=== PATIENT | female | born 1975 | race Caucasian/White ===

== ENCOUNTER 2023-09-16 09:54 | Outpatient (CLI) | payer MEDICAID, SELFPAY | END 2023-09-16 09:55 | disposition home or self-care (01) | PROVIDERS: PCP Family Medicine; Visit Provider Family Medicine | DX: Z00.00 Encounter for general adult medical examination without abnormal findings (principal); R53.83 Other fatigue | CPT/HCPCS: 80048; 84439 ==

== ENCOUNTER 2023-12-02 13:01 | Outpatient (CLI) | payer MEDICAID, SELFPAY ==
--- NOTE | 2023-12-02 13:20 | MM_ITS ---
Patient: ENA DENNIS Facility:?[facility] Patient ID:?[id number] Site Patient ID:?[id number] Site :?[id number] Study:?XRay-Breast Bilateral 3D W/CAD-12/02/2023 1:37:01 PM Ordering Physician:Ander Final Report: BILATERAL SCREENING MAMMOGRAM WITH COMPUTER-AIDED DETECTION AND TOMOSYNTHESIS TECHNIQUE: CC and MLO views were obtained. These mammographic images have been obtained using full-field digital technique. These mammographic images were interpreted with the benefit of computer-aided detection. Breast tomosynthesis was used in this interpretation. COMPARISON FILM: 11/14/20, 11/09/13. FINDINGS: The breasts are heterogeneously dense, which may obscure small masses. IMPRESSION: There is no radiographic evidence for malignancy. ASSESSMENT: BI-RADS Category 1: Negative RECOMMENDATION: Routine screening mammogram in 1 year. A lay language report of this examination will be provided to the patient. ANNITA PLUNKETT M.D. Diagnostic Radiologist [email or web address] D& Transcribed: 1:[address]/Dictated by: Annita Plunkett MD @ 12/03/2023 9:28:00 AM Signed by:?Annita Plunkett MD @12/03/2023 1:27:28 PM (Electronic Signature)
== END 2023-12-02 13:02 | disposition home or self-care (01) ==
LOC: MAMMO 13:01
PROVIDERS: PCP Family Medicine; Visit Provider Family Medicine
DX: Z12.31 Encounter for screening mammogram for malignant neoplasm of breast (principal); R92.2 Inconclusive mammogram
CPT/HCPCS: 77063; 77067

== ENCOUNTER 2024-09-29 11:16 | Outpatient (CLI) | payer MEDICAID, SELFPAY | END 2024-09-29 11:17 | disposition home or self-care (01) | LOC: LKVREF 11:19 | PROVIDERS: PCP Family Medicine; Visit Provider Family Medicine | DX: Z13.1 Encounter for screening for diabetes mellitus (principal); Z13.0 Encounter for screening for diseases of the blood and blood-forming organs and certain disorders involving the immune mechanism | CPT/HCPCS: 80048 ==

== ENCOUNTER 2025-03-27 13:59 | Emergency (ER) | payer MEDICAID, SELFPAY ==
--- OUTSIDE RECORDS SUMMARY | 2025-03-27 14:02 | XMS_ITS | Patient Health Record ---
Author Organization [facility], [facility] Address [address] [place] [id number] Care Team Providers Care Subway Conductor Name Role Phone Jeny BO Unavailable [phone] Reason For Referral No Information Medications Medication SIG (Take, Route, Frequency, Duration) Notes Start Date End Date Status Ambien CR 12.5 MG 1 tablet at bedtime as needed Orally As directed 10/15/2014 Active Magnesium Active Levothyroxine Sodium 25 MCG 1 and 1/2 ta b Orally once daily in the morning one hour before breakfast 10/15/2014 Active Vitamin B 12 Active Vitamin D Active Doxycycline Hyclate 100 MG 1 tablet Oral ly Twice a day; Duration: 60 days 11/05/2014 Active Adapten-All 1 one oral twice daily 12/17/2014 Active CeleXA 40 MG 1 tablet Orally Once a day Active Oil of Oregano 1500 MG as directed Orally daily Active DHEA 5mg one daily oral 01/14/2015 Acti ve traZODone HCl 100 MG Orally Active Progesterone 100 MG 1 capsule on days 14 -24 of your cycle by mouth Once a day 01/14/2015 Active Xanax 1 MG 1 tablet Orally As directed Active Problems Problem Type SNOMED Code ICD Code Onset Dates Problem Status W/U Status Risk Notes Problem Headache (51797584) Headache (784.0) Active confirmed Problem Menopause (575725378) MENOPAUSE (627.2) Active confirmed Problem Fatigue (73345403) FATIGUE (780.79) Active confirmed Problem Insomnia (150657326) INSOMNIA (780.52) Active confirmed Problem Reduced libido (6374445) LIBIDO, DECREASED (799.81) Active confirmed Problem Menstrual disorder (501532309) MENSTRUAL DISORDER (626.9) Active confirmed Problem Weight gain (432330832) WEIGHT GAIN (783.1) Active confirmed Problem Vitamin D deficiency (15399042) Vitamin D deficiency (268.9) Active confirmed Problem Hypothyroid (65529556) Hypothyroid (244.9) Active confirmed Problem Depression (297277040) Depression (311) Active confirmed Problem Abdominal pain (00465452) Abdominal pain (789.00) Active confirmed Problem Alopecia (01181386) Hair loss (704.00) Active confirmed Problem Anxiety state (402966445) Acute anxiety (300.00) Active confirmed Problem Decreased estrogen level (862442114) Estrogen deficiency (256.39) Active confirmed Problem Lyme enzyme-linked immunosorbent assay positive (822747829) Positive Lyme disease serology (795.79) Active confirmed Problem Serum ferritin level low (164965476205395) Low serum ferritin level (790.6) Active confirmed Problem Infectious mononucleosis (806067093) Chronic Danielle Manzanares virus (EBV) infection (075) Active confirmed Plan Of Treatment No Information Insurance Providers Payer Name Payer Address Payer Phone Subscriber Number Group Number Insured Name Patient Relationship to Insured Coverage Start Date Coverage End Date [employer] of [facility] [address] [address] [place], [place] [id number] Izzy Macdonald Self - patient is the insured 5 Medical (General) History Medical History History ICD Code Mirgraines Head injury Depression bladder infections Surgical History Surgery Date(Month/Year) Caesarean section 02/2011 Caesarean section 06/2012
[2025-03-27 14:07] VITALS: BP 143/91; PULSE 80; RESP 18; TEMP 36.2; O2SAT 97; BMI 26.1
--- NOTE | 2025-03-27 14:15 | ED.GENADULT ---
HPI - General Adult General Date Seen: 03/27/25 Chief complaint: Unspecified Complaint, Adult Stated complaint: blacked out Time Seen by Provider: 03/27/25 14:15 History of Present Illness HPI narrative: 49 yo F with past medical history elevated BMI, fibromyalgia, depression/anxiety, and a family history of coronary disease presenting to the ER today for evaluation after she had an episode of altered mental status.. Per PCP record from September she also has a distant history of Lyme disease. She does note that she has chronic trouble with fibromyalgia and chronic trouble with brain fog and aches from her chronic Lyme disease. She works as a [employer] and has been working the same salon for quite a few years. She says she has been healthy and well for the past few days. She gotten up and gone to work at about 920 this morning. Apparently at around 11 or 11 30 she had an episode. 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 She apparently lost focus and had been massaging the client's face instead of washing her hair for about 60-90 seconds. Apparently her client through this to her attention. She was apparently acting oddly. 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 The patient denied taking alcohol or gummies. She apparently also had slurred speech or puffiness of her face. Her Not exactly clear how, but her boyfriend was notified and he came to pick her up from the salon. He brought her here to be evaluated. Here in the ER, the patient her boyfriend requesting that we do a workup. They imply that they want us to do workup to prove to her boss that she is not using drugs or alcohol. She denies any other symptoms. No headache. No blurry vision. No nausea vomiting. No chest pain. No palpitations. There was no visualized seizure activity. She has no history of seizures are absent seizures. For she says she was not drinking alcohol. No THC gummies lately but she does use them some time to help manage her chronic Lyme disease. After her labs came back showing positive THC, positive benzos, and positive serum alcohol level, we obtained more history. Patient does report that she uses Xanax for her anxiety. She says she does occasionally use THC gummies. None this morning or last night. She does not have an explanation for why her alcohol level was positive this afternoon. When asked her if she was drinking this morning, she redirect the conversation. She does vaguely admit to drinking some alcoholic beverages last night that apparently were 10% alcohol. She had her boyfriend say that they stop drinking ?early? last night when went to bed. Her boyfriend got up this morning and went to an appointment before 9:00 a.m.. The patient got up at 9 left for work at 9:20 a.m. when I discussed that a blood alcohol level of 0.06 would not be consistent with alcohol consumption last night, and I inquire about her drinking this morning, she does not directly deny it, but instead changes the direction of the conversation. When I ask her if she would like to talk about alcohol treatment or if she think she has a problem with alcohol use, she says she does not think she has a problem. Related Data Previous Rx's ?Medication ?Instructions ?Recorded citalopram 40 mg tablet 40 mg PO QDAY #90 tabs 09/29/24 trazodone 150 mg tablet 150 mg PO .HS #90 tabs 09/29/24 sulfamethoxazole 800 1 tab PO BID #14 tabs 12/29/24 mg-trimethoprim 160 mg tablet (Bactrim DS) alprazolam 1 mg tablet 0.5 - 1 mg (0.5 - 1 x 1 mg) PO TID 02/12/25 PRN anxiety #30 tabs phentermine 37.5 mg capsule 37.5 mg PO QDAY #30 caps 02/15/25 cephalexin 500 mg capsule 500 mg PO BID #10 caps 03/27/25 Allergies Allergy/AdvReac Type Severity Reaction Status Date / Time No Known Allergies Allergy Unknown Unknown Verified 09/29/24 10: [facility] Medical History Fatigue ?R53.83 - Other fatigue (ICD-10) Hx of migraine during ?Z86.69 - Personal history of other diseases of the nervous system and sense organs (ICD-10) ?Z87.59 - Personal history of other complications of , childbirth and the puerperium (ICD-10) Surgical History Status post repair of ventral hernia ?Z98.890 - Other specified postprocedural states (ICD-10) ?Z87.19 - Personal history of other diseases of the digestive system (ICD-10) Status post delivery ?Z98.891 - History of uterine scar from previous surgery (ICD-10) History of tubal ligation ?Z98.51 - Tubal ligation status (ICD-10) History of nasal septoplasty ?Z98.890 - Other specified postprocedural states (ICD-10) Family History (Updated 09/30/24 @ 08:52 by Ju Rodriguez ~ MELODY) Father High blood pressure High cholesterol Heart disease Other ASCVD (arteriosclerotic cardiovascular disease) Social History Narrative: Marijuana use- Medicinal Alcohol ingestion, 1-4 drinks/week Non-smoker Smoking Status: Never smoker service: No Exam Narrative: Exam Narrative: Constitutional: Appears well-developed and well-nourished. Alert. Conversant. Non toxic. HENT: Head: Atraumatic. Nose: Nose normal. Mouth/Throat: Oral mucosa is clear and moist. no trismus. Pharynx normal. Tonsils symmetric. No tonsillar enlargement, erythema, or exudate. Eyes: Conjunctivae normal. EOM normal. Pupils equal, round, and reactive to light. No scleral icterus. Neck: Normal range of motion. Neck supple. No tracheal deviation present. She does have a dermal piercing on the back of her neck. Skin looks good. No sign of infection. Cardiovascular: Normal rate, regular rhythm. No gallop. No friction rub. No murmur heard. Symmetric radial artery pulses Pulmonary/Chest: Effort normal. No stridor. No respiratory distress. No wheezes. No rales. No rhonchi . No tenderness. Abdominal: Soft. Bowel sounds normal. No distension. No mass. No tenderness. No rebound. No guarding. Musculoskeletal: RUE: Normal range of motion. No tenderness. No deformity LUE: Normal range of motion. No tenderness. No deformity RLE: Normal range of motion. No edema. No tenderness. No deformity LLE: Normal range of motion. No edema. No tenderness. No deformity Lymph: No cervical adenopathy. Neurological: Mental status normal. Attention normal. Alert and oriented x3. GCS 15. Memory normal. Speech fluent. Cognition normal. Cranial Nerves intact II-XII except I did not formally test gag or visual acuity. EOMI. Palate elevates symmetrically and tongue protrudes in the midline. Strength: 5/5 trapezius on the right and left 5/5 deltoid on the right and left 5/5 biceps on the right and left 5/5 triceps on the right and left 5/5 electroplating worker on the right and left 5/5 thumb opposition on the right and left 5/5 finger abduction on the right and left 5/5 hip flexors (L3) on the right and left 5/5 quadriceps (L4) on the right and left 5/5 tibialis anterior on the right and left 5/5 EHL (L5) on the right and left 5/5 gastrocnemius (S1) on the right and left 5/5 hamstring on the right and left Sensation intact to light touch in both upper extremities (C4-T1) Sensation intact to light touch in Both lower extremities (L4-S1). Finger to nose and coordination normal. Gait normal. Skin: Skin is warm and dry. No rash noted. No pallor. Normal capillary refill. Psychiatric: Patient is polite and cooperative. She is pleasant. She is not having any slurred speech or confusion or altered mental status. She seems clinically sober here in the ER. No slurred speech. No facial droop or puffiness. I have concerned that the patient may have alcohol use disorder. She is very vague about her alcohol use. Although we discussed several times, she never explicitly denies alcohol consumption this morning. She is a little bit vague about what she was drinking last night. It sounds like it was an alcoholic beverage that was 10% alcohol by volume. Unlikely that she would been intoxicated to such a level last night that she was still have an alcohol level of 0.06 this afternoon. Patient does not think she is having a problem with alcohol. She does not want to discuss alcohol treatment. She does have anxiety which is chronically managed with Xanax. She urine drug screen is positive. She also endorses a lot of stress and anxiety at home trouble with chronic Lyme disease. Const: Vital Signs, click to edit/add: Vital Signs - 24 hr 03/27/25 14:07 Temperature 97.2 F L Pulse Rate [Pulse Oximeter] 80 Respiratory Rate 18 Blood Pressure [Ri ght Upper Arm] 143/91 H Pulse Oximetry 97 Oxygen Delivery Me thod Room Air Course Vital Signs Vital signs: Initial Vital Signs Temperature 97.2 F L 03/27/25 14:07 Temperature Source Temporal Artery Scan 03/27/25 14:07 Pulse Rate 80 03/27/25 14:07 Respiratory Rate 18 03/27/25 14:07 Blood Pressure 143/91 H 03/27/25 14:07 Blood Pressure Mean 108 H 03/27/25 14:07 Pulse Oximetry 97 03/27/25 14:07 Oxygen Delivery Method Room Air 03/27/25 14:07 Vital Signs Temperature 97.2 F L 03/27/25 14:07 Pulse Rate 80 03/27/25 14:07 Respiratory Rate 18 03/27/25 14:07 Blood Pressure 143/91 H 03/27/25 14:07 Pulse Oximetry 97 03/27/25 14:07 Oxygen Delivery Method Room Air 03/27/25 14:07 Temperature 97.2 F L 03/27/25 14:07 Pulse Rate 80 03/27/25 14:07 Respiratory Rate 18 03/27/25 14:07 Blood Pressure 143/91 H 03/27/25 14:07 Pulse Oximetry 97 03/27/25 14:07 Oxygen Delivery Method Room Air 03/27/25 14:07 Medical Decision Making MDM Narrative Medical decision making narrative: 49-year-old female presenting to the ER today by private car with her boyfriend. She had an episode at work late this morning where she apparently was altered and behaving oddly. She did not lose consciousness but says that she ?blacked out? meaning that she lost focus and was foggy and concentrating. Instead of washing a client's here she was rubbing her clients face. She apparently had some slurred speech or puffiness of her face noted by her boss who prompted their workup. The patient does not think she was having a problems. She came here primarily because she would like us to confirm that she is okay. Differential here is broad. We did do an EKG to look for any sign of ischemia or arrhythmia and is normal. Overall since the patient did not lose postural tone or actually syncope, I do not think she truly ?blacked out,? I think she had an episode of altered mental status. There was no seizure-like at to typically you reported. Consider Pap possible absence seizure but that seems unlikely since she was still doing some activity and acting oddly during the event. Screening laboratory workup is reassuring with normal CBC. Normal CMP save for mild elevation of AST at 41. Urine is abnormal suggesting probable UTI. She does endorse urinary frequency for the past week or so. This clinically is consistent with a urinary tract infection. Urinalysis confirms the infection. There has been no fever, back/flank pain or significant abdominal pain. There is no clinical evidence of pyelonephritis, appendicitis, colitis, diverticulitis or any intraabdominal catastrophe. The patient will be started on antibiotics for the infection. Return if increasing pain, vomiting, fever, or inability to tolerate the oral antibiotic. , although I do think she has a bladder infection, I do not think it has a clear correlation with her episode of altered mental status. Serum alcohol level is positive. This is unexpected finding was the patient reported no alcohol consumption today. This makes me concerned about possible secret alcohol consumption from the patient or alcohol use disorder. I discussed this with the patient and her boyfriend. Patient specifically says she does not think she has a problem with drinking. Although her body language implies that she was not drinking this morning, she never explicitly denied it. At this point she is not clinically intoxicated with alcohol. There is no sign of alcohol withdrawal. She is not interested in alcohol treatment. I think she is safe to discharge with her boyfriend. Urine drug screen is positive for THC, which can be explained by the patient's report of occasional THC gummy use. Urine drug screen is positive for benzos which could be explained by Xanax use. At this point with reasonable clinical confidence I do not think the patient needs to be admitted for EEG monitoring. Would recommend close outpatient follow-up PCP. She is invited to return to the ER if she would like to get help with alcohol if she develops other concerning symptoms. Lab Data Labs: Lab Results 03/27/25 03/27/25 Range/Units 14:40 14:50 WBC 5.34 (4.50-11.00) K/uL RBC 3.97 L (4.00-5.20) m/uL Hgb 12.1 (12.0-16.0) gm/dL Hct 37.6 (33.0-51.0) % MCV 95 (80-100) fL MCH 31 (26-34) pg MCHC 32 (32-36) gm/dL RDW Coeff of Abril 13.7 (11.5-15.5) % Plt Count 391 (140-440) K/uL Neut % (Auto) 66.2 (42.0-72.0) % Lymph % (Auto) 23.4 (20-44) % [place] % (Auto) 7.5 (0.0-11.0) % Eos % (Auto) 1.5 (0.0-7.0) % Baso % (Auto) 0.7 (0.0-3.0) % Neut # (Auto) 3.53 (1.7-7.0) K/uL Lymph # (Auto) 1.25 (0.90-2.90) K/uL [place] # (Auto) 0.40 (0.00-0.90) K/UL Eos # (Auto) 0.08 (0.00-0.50) K/uL Baso # (Auto) 0.04 (0.00-0.30) K/uL Abs Immat Gran (auto) 0.04 (0.00-0.30) K/uL Imm/Tot Granulo (auto) 0.7 % Sodium 138 (135-149) mmol/L Potassium 4.3 (3.6-5.1) mmol/L Chloride 102 (96-114) mmol/L Carbon Dioxide 29 (20-32) mmol/L Anion Gap 7 (7-15) mEq/L BUN 14 (5-24) mg/dL Creatinine 0.9 (0.5-1.5) mg/dL Estimated Creat Clear 69.53 Estimated GFR 79 ml/min Glucose 93 (60-115) mg/dL Calcium 8.8 (8.4-10.6) mg/dL Total Bilirubin 0.4 (0.1-1.5) mg/dL AST 41 H (12-35) U/L ALT 25 (4-35) U/L Alkaline Phosphatase 75 (40-150) U/L Total Protein 7.9 (6.0-8.3) g/dL Albumin 4.4 (3.3-5.0) g/dL Urine Color Light yellow (Yellow) Urine Appearance Cloudy A (Clear) Urine pH 6.0 (5.0-8.5) Ur Specific [place] 1.010 (1.000-1.030) Urine Protein Negative (Negative) Urine Glucose (UA) Negative (Negative) Urine Ketones Negative (Negative) Urine Blood 1+ A (Negative) Urine Nitrite Negative (Negative) Urine Bilirubin Negative (Negative) Urine Urobilinogen 0.2 (0.2-1.0) Ur Leukocyte Esterase 1+ A (Negative) Urine RBC 2-5 A (0-2) Urine WBC >100 A (0-5) Ur Squamous Epith Cells Few (None-Few) Urine Bacteria Moderate A (None) Urine HCG, Qual Negative (Negative) Urine Opiates Screen Negative (Negative) Ur Oxycodone Screen Negative (Negative) Urine Methadone Screen Negative (Negative) Ur Barbiturates Screen Negative (Negative) U Tricyclic Antidepress Negative (Negative) Ur Phencyclidine Scrn Negative (Negative) Ur Amphetamines Screen Negative (Negative) U Methamphetamines Scrn Negative (Negative) U Benzodiazepines Scrn POSITIVE A (Negative) Urine Cocaine Screen Negative (Negative) U Marijuana (THC) Screen POSITIVE A (Negative) Ur Drug Screen Comment See Note Ethyl Alcohol 0.06 H (0.01-0.03) % ECG Data Attestation: I personally reviewed and interpreted this ECG as follows: Interpretation: Normal sinus rhythm Rate 74 WV interval 150 Normal QRS axis. No pathologic Q-waves. No ST segment elevation or depression. No sign of acute cardiac ischemia. QT 420, QTC 466 Discharge Plan Discharge Clinical Impression: Acute alteration in mental status, Alcohol use, UTI (urinary tract infection) Patient Disposition: Home, Self-Care Condition: Stable Instructions: Urinary Tract Infection in Women (DC), Alcohol Use Disorder (ED) Additional Instructions: As we discussed, your laboratory workup shows signs of a bladder infection. Please start on the antibiotics today and take them twice daily for 5 days until the infection is better. If you have worsening symptoms such as fever, abdominal pain, flank pain, vomiting, please return to the ER or see your doctor immediately Your lab tests showed a you do have alcohol in your blood stream. Please abstain from alcohol. Please follow-up with your regular doctor if you would like to discuss alcohol use disorder or talk about treatment. Remember you can come back to the ER any time if you need help. If you have more episodes where you have confusion or more spells of blanking out, please return to the ER right away. Prescriptions: New cephalexin 500 mg capsule 500 mg PO BID Qty: 10 0RF No Action citalopram 40 mg tablet 40 mg PO QDAY Qty: 90 3RF trazodone 150 mg tablet 150 mg PO .HS Qty: 90 3RF sulfamethoxazole-trimethoprim [Bactrim DS] 800-160 mg tablet 1 tab PO BID Qty: 14 0RF alprazolam 1 mg tablet 0.5 - 1 mg PO TID PRN (Reason: anxiety) Qty: 30 1RF phentermine 37.5 mg capsule 37.5 mg PO QDAY Qty: 30 2RF Rx Instructions: must administer 30 minutes before or 1-2 hours after breakfast UNSURE OF STRENGTH Follow Up/Referrals: Ole Caicedo MD [Primary Care Provider, Family Practice] Stand Alone Forms: [employer] Info Instructions
[2025-03-27 14:48] LABS: Appearance Urine Cloudy (Clear)
[2025-03-27 14:51] LABS: Ur HCG Qualitative* Negative (Negative)
[2025-03-27 15:02] LABS: Hematocrit 37.6 % (33.0-51.0); Hemoglobin* 12.1 gm/dL (12.0-16.0); Immature Granulocytes Abs Auto 0.04 K/uL (0.00-0.30); Immature Granulocytes Pct Auto 0.7 %; Lymphocytes Absolute Auto 1.25 K/uL (0.90-2.90); Mean Corpuscular HGB Conc 32 gm/dL (32-36); Mean Corpuscular Hemoglobin 31 pg (26-34); Mean Corpuscular Volume 95 fL (80-100); RDW Coefficient of Variation % 13.7 % (11.5-15.5); Red Blood Count 3.97 m/uL (4.00-5.20); Slide Review Reflex No; White Blood Count* 5.34 K/uL (4.50-11.00)
[2025-03-27 15:07] LABS: Cannabinoid Screen Urine POSITIVE (Negative); Methamphetamines Screen Urine Negative (Negative); Tricyclic Antidepressant Urine Negative (Negative)
[2025-03-27 15:09] LABS: Albumin* 4.4 g/dL (3.3-5.0)
[2025-03-27 15:10] LABS: Chloride* 102 mmol/L (96-114); Potassium* 4.3 mmol/L (3.6-5.1); Sodium* 138 mmol/L (135-149)
[2025-03-27 15:12] LABS: Alanine Aminotransferase* 25 U/L (4-35); Alkaline Phosphatase* 75 U/L (40-150); Anion Gap 7 mEq/L (7-15); Aspartate Amino Transferase* 41 U/L (12-35); Bilirubin Total* 0.4 mg/dL (0.1-1.5); Blood Urea Nitrogen* 14 mg/dL (5-24); Carbon Dioxide* 29 mmol/L (20-32); Creatinine* 0.9 mg/dL (0.5-1.5); Est. Creatinine Clearance* 69.53; Estimated Glomerular Filt Rate 79 ml/min
[2025-03-27 15:13] LABS: Calcium* 8.8 mg/dL (8.4-10.6); Ethanol* 0.06 % (0.01-0.03); Glucose* 93 mg/dL (60-115); Total Protein* 7.9 g/dL (6.0-8.3)
--- NOTE | 2025-03-31 12:06 | ED.NURSE ---
Patient called asking why they switched her antibiotic. Patient was updated on the culture results and the reason to switch antibiotics. Patient understands and plans to change the antibiotic.
== END 2025-03-27 16:05 | disposition home or self-care (01) ==
PROVIDERS: Emergency Provider Emergency Medicine; PCP Family Medicine
DX: N39.0 Urinary tract infection, site not specified (principal); R47.81 Slurred speech; R41.82 Altered mental status, unspecified; F12.90 Cannabis use, unspecified, uncomplicated; F10.929 Alcohol use, unspecified with intoxication, unspecified
CPT/HCPCS: 36415; 80053; 80306; 81001; 81025; 82077; 85025; 87086; 93005; 99283; 99284